=== PATIENT | female | born 1995 | race Caucasian/White ===

== ENCOUNTER 2016-09-04 12:01 | Emergency (ER) | payer OTHER | END 2016-09-04 13:25 | disposition home or self-care (01) | LOC: ER 12:01 | DX: J06.9 Acute upper respiratory infection, unspecified (principal); R50.9 Fever, unspecified; J02.9 Acute pharyngitis, unspecified; R52 Pain, unspecified | CPT/HCPCS: 87400; 99282 ==

== ENCOUNTER 2016-10-07 19:03 | Emergency (ER) | payer OTHER | END 2016-10-07 21:00 | disposition left against medical advice (07) | LOC: ER 19:03 | DX: Z53.21 Procedure and treatment not carried out due to patient leaving prior to being seen by health care provider (principal) | CPT/HCPCS: 99211 ==

== ENCOUNTER 2016-12-10 19:29 | Emergency (ER) | payer OTHER | END 2016-12-10 21:28 | disposition home or self-care (01) | LOC: ER 19:29 | DX: M40.204 Unspecified kyphosis, thoracic region (principal); M54.5 Low back pain; F17.210 Nicotine dependence, cigarettes, uncomplicated; X50.0XXA Overexertion from strenuous movement or load, initial encounter; Y93.F2 Activity, caregiving, lifting; Y92.129 Unspecified place in nursing home as the place of occurrence of the external cause | CPT/HCPCS: 72072; 72100; 96372; 99283-25 ==